=== PATIENT | male | born 1995 | race Two or more races ===

== ENCOUNTER 2018-02-14 12:39 | Emergency (ER) | payer SELFPAY ==
[~2018-02-14] VITALS: Ht 170.2 cm; Wt 63.9 kg
[2018-02-14 12:43] VITALS: BP 127/69
[2018-02-14] MEDS ORDERED: ERYTHROMYC1 APPLICAT LEFT EYE (14:14)
== END 2018-02-14 14:40 | disposition home or self-care (01) ==
LOC: EME 12:39
DX: H00.024 Hordeolum internum left upper eyelid (principal); F17.200 Nicotine dependence, unspecified, uncomplicated
CPT/HCPCS: 99281; 99284